=== PATIENT | female | born 2005 | race Caucasian/White ===

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

== ENCOUNTER 2024-11-19 16:53 | Emergency (ER) | payer OTHER, SELFPAY ==
[2024-11-19 17:17] VITALS: BP 93/75; PULSE 86; RESP 18; TEMP 36.8; O2SAT 100
[2024-11-19 17:27] LABS: EDSTREPNEGPOS1 Negative (Negative)
--- NOTE | 2024-11-19 17:33 | ED.EYEPROB ---
HPI - Eye Problem General Chief complaint: Eye Problems Stated complaint: [facility]/ Sore Throat Time Seen by Provider: 11/19/24 17:10 Source: patient and RN notes reviewed Mode of arrival: ambulatory Limitations: no limitations History of Present Illness HPI Narrative: 19-year-old female presents [facility] complaining left eye redness and drainage since this morning. Patient also reports having a sore throat for last 4 days. Patient denies any vision changes, headaches, nausea, vomiting, cough, congestion, runny nose, earache, fevers, body aches, chills, chest pain, difficulty breathing, abdominal pain, or any other symptoms. Patient denies any concerns for STIs. Related Data Home Medications ?Medication ?Instructions ?Recorded ?Confirmed ?Last Taken ?Type fluoxetine 40 mg capsule mg 11/19/24 Unknown History olanzapine 10 mg tablet mg 11/19/24 Unknown History Allergies Allergy/AdvReac Type Severity Reaction Status Date / Time No Known Allergies Allergy Verified 11/19/24 17:25 Review of Systems Review of Systems: CONSTITUTIONAL: Denies fever, chills, or sweats. EYES: Denies visual changes, pain. Positive redness and discharge. ENT: Denies rhinorrhea, congestion, or otalgia. Positive for sore throat. CARDIOVASCULAR: Denies chest pain, palpitations, or edema. RESPIRATORY: Denies cough or dyspnea. GASTROINTESTINAL: Denies abdominal pain, nausea, vomiting, or diarrhea. GENITOURINARY: Denies dysuria or hematuria. SKIN: Denies rash or itching. MUSCULOSKELETAL: Denies back pain, joint pain, or myalgia. NEUROLOGIC: Denies headache, numbness, or weakness. PSYCHIATRIC: Denies anxiety or depression. All other systems reviewed are negative, except as documented in HPI. PMFSH Comments At the time of my signature, I reviewed and agree with the nursing past medical, surgical, social, and family history. There is no relevant family history pertinent to the patient complaint. Exam Narrative: GENERAL: This is a well-nourished, well-developed adult, in no apparent distress. They are non ill-appearing, nontoxic appearing. HEAD: normocephalic, atraumatic. EYES: Sclera clear/white. Right Conjunctiva normal. Left conjunctiva injected with purulentdrainage. Vision is grossly intact. Extraocular movements intact. Pupils PERRLA EARS: External ears normal, auditory canals clear and without drainage, TMs normal without perforation. Hearing grossly intact. NOSE: External nose normal with no obvious nasal discharge, nasal turbinates without redness, no rhinorrhea. THROAT: Mucous membranes moist, posterior pharynx erythematous without exudate.. Uvula midline. NECK: Neck supple, non-tender without lymphadenopathy, masses or thyromegaly. CARDIOVASCULAR: Regular rate and rhythm without murmurs, gallops, or rubs. RESPIRATORY: Clear to auscultation. Breath sounds equal bilaterally. No wheezes, rales, or rhonchi. SKIN: warm, Dry, intact with no suspicious lesions or rash, good texture and turgor. NEURO: awake, alert, and oriented to person, place and time. There were no obvious focal neurologic abnormalities. EXTREMITIES: No joint tenderness, effusion, or edema noted. Course Course Emergency Course: Portions of this record may have been created with voice recognition software Level of Care: Express Care Visit Vital Signs Vital signs: Vital Signs Temperature 98.3 F 11/19/24 17:17 Pulse Rate 86 11/19/24 17:17 Respiratory Rate 18 11/19/24 17:17 Blood Pressure 93/75 L 11/19/24 17:17 Pulse Oximetry 100 11/19/24 17:17 Temperature 98.3 F 11/19/24 17:17 Pulse Rate 86 11/19/24 17:17 Respiratory Rate 18 11/19/24 17:17 Blood Pressure 93/75 L 11/19/24 17:17 Pulse Oximetry 100 11/19/24 17:17 Reviewed MDM - Eye Problem MDM Narrative Medical decision making narrative: Rapid strep negative. A throat culture pending. Patient likely has a viral pharyngitis. Patient also likely has bacterial conjunctivitis given purulence. Patient denies any concerns for STDs. Patient does not wear contacts. Will prescribe polymyxin eyedrops. Differential Diagnosis Differential diagnosis: Likely corneal abrasion, conjunctivitis, acute iritis and other (Keratitis) Lab Data Attestation: I reviewed the patient's lab results. Labs: Lab Results 11/19/24 Range/Units 17:25 POC Grp A Strep Screen Negative (Negative) Critical Care Time Critical Care Time Critical Care Time: No Discharge Plan Discharge Clinical Impression: Bacterial conjunctivitis, Acute viral pharyngitis Patient Disposition: Home Condition: Stable Instructions: Antibiotic Form, Pharyngitis (ED), Conjunctivitis (ED) Additional Instructions: Your exam today shows Conjunctivitis, You have been given a prescription for eye drops. Use the eye drops as instructed. If you are not better in 2-3 days, you need to follow up with an taxi servicer. Do not rub the eye or put anything else in the eye, this can cause abrasions (scratches) on the eye or lead to vision loss. Also it is important not to touch the tube or tip of drops to the eye, as this can cause further infection. Wash your hands very well before instilling the medication. Handwashing can help prevent the spread of disease. Return to ER vision changes, severe eye pain, pain with eye movement, fevers, headaches, nausea, vomiting, or any serious concerns. 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. You will be notified in a few days if the culture comes back positive for strep, and appropriate antibiotics will be called in for you at that time. Your symptoms are likely due to a viral illness, which is not treated with antibiotics. Viral symptoms can be present for up to 10-14 days. Take Tylenol or ibuprofen as needed for fever or pain. Follow instructions on the bottle. Rest and stay hydrated. Follow up with your PCP in 3-5 days days if symptoms are not improving. Go to the ER immediately if you develop difficulty breathing or swallowing Patient Language: Bengali Prescriptions: New polymyxin B sulf-trimethoprim 10,000 unit- 1 mg/mL drops 1 drp LEFT EYE Q3H 7 Days Qty: 10 0RF Rx Instructions: while awake; do not exceed 6 doses in 24 hours No Action fluoxetine 40 mg capsule olanzapine 10 mg tablet Follow-up/Referrals: PHYSICIAN,[facility] [employer] [facility]KER [Primary Care Provider, Internal Medicine] Time of Disposition: 17:32
== END 2024-11-19 17:40 | disposition home or self-care (01) ==
DX: H10.9 Unspecified conjunctivitis (principal); J02.8 Acute pharyngitis due to other specified organisms
CPT/HCPCS: 87081; 87880; 99203; G0463